=== PATIENT | female | born 1935 | race Caucasian/White ===

== ENCOUNTER 2019-03-26 10:15 | Inpatient (IN) | payer MEDICARE, BC ==
[2019-03-26] MEDS ORDERED: Aspirin 81 MG Tab.Chew PO ONE (10:28)
[2019-03-26] MEDS ORDERED: Diltiazem 25 MG/5 ML SDV IVPUSH ONE (10:31)
[2019-03-26] MEDS: Sodium Chloride 0.9% 1,000 ML IV SCH ×3 (10:39→14:35)
--- NOTE | 2019-03-26 10:54 | EDM.PDOC ---
ED HPI GENERAL MEDICAL PROBLEM - General Chief Complaint: Syncope Stated Complaint: heart attack Time Seen by Provider: 03/26/19 10:51 Source of Information: Reports: Patient, Family, Other (pt lives at the [facility]. ) History Limitations: Reports: No Limitations - History of Present Illness INITIAL COMMENTS - FREE TEXT/NARRATIVE: pt has a history of dementia and is living at the [facility]. She had several episodes of syncope this am. She had an episode where she may have arrested briefly. She was found to be in atrial fib which is new for her. She did not complain of chest pain. Onset: Today, Sudden Duration: Hour(s): Location: Reports: Chest Associated Symptoms: Reports: Shortness of Breath, Other (rapid heart beat. ) - Related Data Allergies Allergy/AdvReac Type Severity Reaction Status Date / Time Penicillins Allergy Cannot Verified 03/26/19 11:17 Remember Home Meds: Home Meds Benazepril [Lotensin] 20 mg PO DAILY 03/26/19 [History] Divalproex Sodium 125 mg PO BID 03/26/19 [History] Donepezil HCl 10 mg PO DAILY 03/26/19 [History] PARoxetine HCl [Paroxetine HCl] 40 mg PO DAILY 03/26/19 [History] Potassium Chloride 20 meq PO DAILY 03/26/19 [History] QUEtiapine Fumarate [Quetiapine Fumarate] 75 mg PO DAILY 03/26/19 [History] hydroCHLOROthiazide [Hydrochlorothiazide] 25 mg PO DAILY 03/26/19 [History] ED ROS GENERAL - Review of Systems Review Of Systems: See Below Constitutional: Reports: Other (pt had a 99 degree temp this am. ) HEENT: Reports: No Symptoms Respiratory: Reports: No Symptoms Cardiovascular: Reports: Palpitations, Other (pt was found to have a irregularly irregula heart beat. ) Endocrine: Reports: No Symptoms GI/Abdominal: Reports: No Symptoms : Reports: No Symptoms Musculoskeletal: Reports: No Symptoms Skin: Reports: No Symptoms ED EXAM, NEURO - Physical Exam Exam: See Below Text/Narrative:: pt arrived with a history of syncope at the [facility] home she did not complain of chest pain. Her temp was low grade this am. She has no cardiac hiatory. Her heart rate was rapid and was found to be in atrial fib. Exam Limited By: No Limitations General Appearance: Alert, Anxious, Mild Distress, Other (pupils equal and reactive. ) Ears: Normal TMs Nose: Normal Inspection Throat/Mouth: Normal Inspection Head Exam: Atraumatic Neck: Normal Inspection Respiratory/Chest: No Respiratory Distress Cardiovascular: Irregularly Irregular, Other (rate in the 140 range. ) GI/Abdominal: Soft, Non-Tender (Female) Exam: Deferred Rectal (Female) Exam: Deferred Neurological: Alert, Other (pt has a history of being disoriented. ) Back Exam: Normal Inspection Extremities: Other (no edema. She does have a history of thick brawny ankles. ) Psychiatric: Normal Affect Course - Vital Signs Last Recorded V/S: Last Vital Signs Temp 36.7 C 03/26/19 11:29 Pulse 148 H 03/26/19 11:29 Resp 16 03/26/19 11:29 BP 93/53 L 03/26/19 11:29 Pulse Ox 90 L 03/26/19 11:29 - Orders/Labs/Meds Orders: Active Orders 24 hr Category Date Time Status EKG Documentation Completion [RC] ASDIRECTED Care 03/26/19 10:20 Active Delgado Catheter Insertion [Insert Urinary Catheter] [OM. Care 03/26/19 11:15 Ordered PC] Q24H Urinary Catheter Assessment [RC] ASDIRECTED Care 03/26/19 11:02 Active CULTURE BLOOD [BC] Urgent Lab 03/26/19 11:53 Ordered CULTURE BLOOD [BC] Urgent Lab 03/26/19 11:53 Ordered CULTURE URINE [RM] Stat Lab 03/26/19 11:50 Ordered Sodium Chloride 0.9% [Normal Saline] 1,000 ml Med 03/26/19 10:30 Active IV ASDIRECTED Blood Culture x2 Reflex Set [OM.PC] Urgent Oth 03/26/19 11:53 Ordered EKG 12 Lead [EK] Routine Ther 03/26/19 10:20 Ordered Medication Orders Sodium Chloride (Normal Saline) 1,000 mls @ 250 mls/hr IV ASDIRECTED ZACHERY Last Admin: 03/26/19 10:39 Dose: 250 mls/hr Labs: Laboratory Tests 03/26/19 03/26/19 03/26/19 Range/Units 10:30 10:30 10:30 WBC 10.6 (4.5-11.0) K/uL RBC 4.71 (3.30-5.50) M/uL Hgb 14.4 (12.0-15.0) g/dL Hct 44.9 (36.0-48.0) % MCV 95 (80-98) fL MCH 31 (27-31) pg MCHC 32 (32-36) % Plt Count 287 (150-400) K/uL Neut % (Auto) 58 (36-66) % Lymph % (Auto) 20 L (24-44) % [place] % (Auto) 20 H (2-6) % Eos % (Auto) 2 (2-4) % Baso % (Auto) 0 (0-1) % Sodium 136 L (140-148) mmol/L Potassium 3.9 (3.6-5.2) mmol/L Chloride 99 L (100-108) mmol/L Carbon Dioxide 27 (21-32) mmol/L Anion Gap 13.9 (5.0-14.0) mmol/L BUN 17 (7-18) mg/dL Creatinine 1.2 H (0.6-1.0) mg/dL Est Cr Clr Drug Dosing 31.40 mL/min Estimated GFR (MDRD) 43 L (>60) Glucose 126 H (74-106) mg/dL Lactic Acid (0.4-2.0) mmol/L Calcium 8.8 (8.5-10.1) mg/dL Total Bilirubin 0.8 (0.2-1.0) mg/dL AST 28 (15-37) U/L ALT 17 (12-78) U/L Alkaline Phosphatase 95 (46-116) U/L Troponin I < 0.017 (0.000-0.056) ng/mL NT-Pro-B Natriuret Pep (5-450) pg/mL Total Protein 6.5 (6.4-8.2) g/dL Albumin 3.1 L (3.4-5.0) g/dL Globulin 3.4 (2.3-3.5) g/dL Albumin/Globulin Ratio 0.9 L (1.2-2.2) Urine Color (YELLOW) Urine Appearance (CLEAR) Urine pH (5.0-8.0) Ur Specific [place] (1.008-1.030) Urine Protein (NEGATIVE) mg/dL Urine Glucose (UA) (NEGATIVE) mg/dL Urine Ketones (NEGATIVE) mg/dL Urine Occult Blood (NEGATIVE) Urine Nitrite (NEGATIVE) Urine Bilirubin (NEGATIVE) Urine Urobilinogen (0.2-1.0) EU/dL Ur Leukocyte Esterase (NEGATIVE) Urine RBC (0-5) Urine WBC (0-5) Ur Epithelial Cells Amorphous Sediment Urine Bacteria Urine Mucus 03/26/19 03/26/19 03/26/19 Range/Units 10:30 10:30 11:21 WBC (4.5-11.0) K/uL RBC (3.30-5.50) M/uL Hgb (12.0-15.0) g/dL Hct (36.0-48.0) % MCV (80-98) fL MCH (27-31) pg MCHC (32-36) % Plt Count (150-400) K/uL Neut % (Auto) (36-66) % Lymph % (Auto) (24-44) % [place] % (Auto) (2-6) % Eos % (Auto) (2-4) % Baso % (Auto) (0-1) % Sodium (140-148) mmol/L Potassium (3.6-5.2) mmol/L Chloride (100-108) mmol/L Carbon Dioxide (21-32) mmol/L Anion Gap (5.0-14.0) mmol/L BUN (7-18) mg/dL Creatinine (0.6-1.0) mg/dL Est Cr Clr Drug Dosing mL/min Estimated GFR (MDRD) (>60) Glucose (74-106) mg/dL Lactic Acid 2.7 H (0.4-2.0) mmol/L Calcium (8.5-10.1) mg/dL Total Bilirubin (0.2-1.0) mg/dL AST (15-37) U/L ALT (12-78) U/L Alkaline Phosphatase (46-116) U/L Troponin I (0.000-0.056) ng/mL NT-Pro-B Natriuret Pep 2406 H (5-450) pg/mL Total Protein (6.4-8.2) g/dL Albumin (3.4-5.0) g/dL Globulin (2.3-3.5) g/dL Albumin/Globulin Ratio (1.2-2.2) Urine Color Yellow (YELLOW) Urine Appearance Slightly cloudy A (CLEAR) Urine pH 7.0 (5.0-8.0) Ur Specific [place] 1.020 (1.008-1.030) Urine Protein 100 H (NEGATIVE) mg/dL Urine Glucose (UA) Negative (NEGATIVE) mg/dL Urine Ketones Negative (NEGATIVE) mg/dL Urine Occult Blood Negative (NEGATIVE) Urine Nitrite Negative (NEGATIVE) Urine Bilirubin Negative (NEGATIVE) Urine Urobilinogen 1.0 (0.2-1.0) EU/dL Ur Leukocyte Esterase Negative (NEGATIVE) Urine RBC 0-5 (0-5) Urine WBC 0-5 (0-5) Ur Epithelial Cells Rare Amorphous Sediment Rare Urine Bacteria Rare Urine Mucus Many Meds: Medications Generic Name Dose Route Start Last Admin Trade Name Freq PRN Reason Stop Dose Admin Sodium Chloride 1,000 mls @ 250 mls/hr 03/26/19 10:30 03/26/19 10:39 Normal Saline IV 250 mls/hr ASDIRECTED ZACHERY Administration Discontinued Medications Generic Name Dose Route Start Last Admin Trade Name Freq PRN Reason Stop Dose Admin Aspirin 324 mg 03/26/19 10:28 03/26/19 10:39 Aspirin PO 03/26/19 10:29 324 mg ONETIME ONE Administration Diltiazem HCl 10 mg 03/26/19 10:31 03/26/19 10:35 Diltiazem IVPUSH 03/26/19 10:32 Not Given ONETIME ONE - Re-Assessments/Exams Free Text/Narrative Re-Assessment/Exam: 03/26/19 11:13 pt had a chest xray which did not reveal a infiltrate. She has a normal trop. Her ekg shows atrial fib--uncontrolled. Her wbc is not elevated. 03/26/19 11:54 pt has mild elevation of lactic acid. Her chest xray does not reveal a infiltracte. Pt remains hypotensive. She has had 1 liter of fluid. She has a Ua that does not look infected. Departure - Departure Time of Disposition: 12:02 Disposition: Admitted As Inpatient 65 Condition: Fair Clinical Impression: Hypotension, Atrial fibrillation with rapid ventricular response, Dehydration - Discharge Information Referrals: PCP,None [Primary Care Provider] - Forms: ED Department Discharge - My Orders Last 24 Hours: My Active Orders 03/26/19 10:20 EKG Documentation Completion [RC] ASDIRECTED EKG 12 Lead [EK] Routine 03/26/19 10:30 Sodium Chloride 0.9% [Normal Saline] 1,000 ml IV ASDIRECTED 03/26/19 11:02 Urinary Catheter Assessment [RC] ASDIRECTED 03/26/19 11:15 Delgado Catheter Insertion [Insert Urinary Catheter] [OM.PC] Q24H 03/26/19 11:50 CULTURE URINE [RM] Stat 03/26/19 11:53 CULTURE BLOOD [BC] Urgent CULTURE BLOOD [BC] Urgent Blood Culture x2 Reflex Set [OM.PC] Urgent - Assessment/Plan Last 24 Hours: My Active Orders 03/26/19 10:20 EKG Documentation Completion [RC] ASDIRECTED EKG 12 Lead [EK] Routine 03/26/19 10:30 Sodium Chloride 0.9% [Normal Saline] 1,000 ml IV ASDIRECTED 03/26/19 11:02 Urinary Catheter Assessment [RC] ASDIRECTED 03/26/19 11:15 Delgado Catheter Insertion [Insert Urinary Catheter] [OM.PC] Q24H 03/26/19 11:50 CULTURE URINE [RM] Stat 03/26/19 11:53 CULTURE BLOOD [BC] Urgent CULTURE BLOOD [BC] Urgent Blood Culture x2 Reflex Set [OM.PC] Urgent
--- NOTE | 2019-03-26 11:51 | CRLCR ---
INDICATION: Short of breath. TECHNIQUE: Chest 1 view COMPARISON: None. FINDINGS: Hyperinflation with flattening of the hemidiaphragms bilaterally. Possible nodular density in the right midlung. Linear atelectasis or scarring left mid lung. No focal consolidation, pleural effusion, or pneumothorax. Cardiomegaly. Normal pulmonary vascularity. Prominent central pulmonary arteries. Calcified tortuous aorta. IMPRESSION: 1. No acute cardiopulmonary findings. 2. Possible nodular density in the right midlung. Consider further evaluation with chest CT. 3. Pulmonary hyperinflation. 4. Cardiomegaly. Dictated by Guera Goldstein MD @ Mar 26 2019 11:47AM Signed by Dr. Guera Goldstein @ Mar 26 2019 11:49AM
[2019-03-26] MEDS ORDERED: Sodium Chloride 0.9% 1,000 ML IV SCH (12:15)
--- NOTE | 2019-03-26 13:02 | PCM.HP.2 ---
H&P History of Present Illness - General Date of Service: 03/26/19 Admit Problem/Dx: Admission Diagnosis/Problem Admission Diagnosis/Problem Atrial flutter with rapid ventricular response Source of Information: Patient, Family, Provider History Limitations: Reports: Other (dementia ) - History of Present Illness Initial Comments - Free Text/Narative: CC: syncope HPI: Chary presents from assisted living after an episode of syncope. She is unable to provide reliable history because of her dementia. History is gathered from her daughter and son-in-law. They report that she seemed a little shaky and a little weak yesterday but was otherwise normal. This morning while her daughter and son-in-law were at her apartment checking on her after she fell asleep at breakfast she had a syncopal episode while on the toilet. She was unresponsive for a short while and her son could not palpate a pulse but she did not have CPR. She was brought to the emergency room for further evaluation and was noted to be in atrial fibrillation/flutter with a heart rate in the 150s. She was hypotensive with systolic blood pressures in the 70s. There was concern for sepsis and she was given IV fluids and cultures were obtained in addition to routine laboratory studies. Her heart rate has slowed some with IV fluids and she is in atrial flutter with a persistent elevation of the heart rate. There is no evidence for an infectious source at this time though her lactic acid level is mildly elevated. Blood pressure is improving with IV fluids. Patient says that she feels fine. She does not recall recent difficulties with chest pain, shortness of breath, cough, fevers or abdominal pain. She has not noticed a change in bowel or bladder habits. She will be admitted for management of atrial flutter. - Related Data Allergies/Adverse Reactions: Allergies Allergy/AdvReac Type Severity Reaction Status Date / Time Penicillins Allergy Cannot Verified 03/26/19 11:17 Remember Home Medications: Home Meds Benazepril [Lotensin] 20 mg PO DAILY 03/26/19 [History] Divalproex Sodium 125 mg PO BIDAC 03/26/19 [History] Donepezil HCl 10 mg PO DAILY 03/26/19 [History] PARoxetine HCl [Paroxetine HCl] 40 mg PO DAILY 03/26/19 [History] Potassium Chloride 20 meq PO DAILY 03/26/19 [History] QUEtiapine Fumarate [Quetiapine Fumarate] 75 mg PO DAILY 03/26/19 [History] hydroCHLOROthiazide [Hydrochlorothiazide] 25 mg PO DAILY 03/26/19 [History] Past Medical History HEENT History: Reports: Impaired Vision Cardiovascular History: Reports: Arrhythmia, Hypertension, Other (See Below) Other Cardiovascular History: svt [employer] History: Reports: Musculoskeletal History: Reports: Osteoporosis Neurological History: Reports: Other (See Below) Other Neuro History: dementia, trigeminal neuralgia Psychiatric History: Reports: Anxiety Dermatologic History: Reports: Seborrheic Dermatitis Social & Family History - Family History Cardiac: Denies: CAD - Tobacco Use Smoking Status *Q: Never Smoker - Caffeine Use Caffeine Use: Reports: None - Alcohol Use Alcohol Use History: No - Recreational Drug Use Recreational Drug Use: No H&P Review of Systems - Review of Systems: Review Of Systems: Unable To Obtain (advanced dementia) Exam - Exam Exam: See Below - Vital Signs Vital Signs: Last Vital Signs Temp 36.7 C 03/26/19 11:29 Pulse 118 H 03/26/19 12:43 Resp 19 03/26/19 12:43 BP 88/53 L 03/26/19 12:43 Pulse Ox 96 03/26/19 12:43 Weight: 68.039 kg - Exam Quality Assessment: No: Supplemental Oxygen General: Alert, Cooperative. No: Oriented, Mild Distress HEENT: Conjunctiva Clear. No: Mucosa Moist & [place] (dry), Scleral Icterus Neck: Supple, Trachea Midline. No: Lymphadenopathy Lungs: Clear to Auscultation, Normal Respiratory Effort Cardiovascular: Irregular Rhythm, Tachycardia. No: Systolic Murmur GI/Abdominal Exam: Normal Bowel Sounds, Soft, Non-Tender, No Distention, No Mass Extremities: No Pedal Edema. No: Joint Swelling, Increased Warmth Peripheral Pulses: 2+: Dorsalis Pedis (L), Dorsalis Pedis (R) Skin: Warm, Dry Neuro Extensive - Mental Status: Alert, Nl Response to Commands. No: Oriented x3 Neuro Extensive - Motor, Sensory, Reflexes: No: Dysarthria, Abnormal Motor, Tremor Psychiatric: Alert, Normal Affect. No: Agitated - Patient Data Lab Results Last 24 hrs: Laboratory Results - last 24 hr 03/26/19 03/26/19 03/26/19 Range/Units 10:30 10:30 10:30 WBC 10.6 (4.5-11.0) K/uL RBC 4.71 (3.30-5.50) M/uL Hgb 14.4 (12.0-15.0) g/dL Hct 44.9 (36.0-48.0) % MCV 95 (80-98) fL MCH 31 (27-31) pg MCHC 32 (32-36) % Plt Count 287 (150-400) K/uL Neut % (Auto) 58 (36-66) % Lymph % (Auto) 20 L (24-44) % [place] % (Auto) 20 H (2-6) % Eos % (Auto) 2 (2-4) % Baso % (Auto) 0 (0-1) % Sodium 136 L (140-148) mmol/L Potassium 3.9 (3.6-5.2) mmol/L Chloride 99 L (100-108) mmol/L Carbon Dioxide 27 (21-32) mmol/L Anion Gap 13.9 (5.0-14.0) mmol/L BUN 17 (7-18) mg/dL Creatinine 1.2 H (0.6-1.0) mg/dL Est Cr Clr Drug Dosing 31.40 mL/min Estimated GFR (MDRD) 43 L (>60) Glucose 126 H (74-106) mg/dL Lactic Acid (0.4-2.0) mmol/L Calcium 8.8 (8.5-10.1) mg/dL Total Bilirubin 0.8 (0.2-1.0) mg/dL AST 28 (15-37) U/L ALT 17 (12-78) U/L Alkaline Phosphatase 95 (46-116) U/L Troponin I < 0.017 (0.000-0.056) ng/mL NT-Pro-B Natriuret Pep (5-450) pg/mL Total Protein 6.5 (6.4-8.2) g/dL Albumin 3.1 L (3.4-5.0) g/dL Globulin 3.4 (2.3-3.5) g/dL Albumin/Globulin Ratio 0.9 L (1.2-2.2) Urine Color (YELLOW) Urine Appearance (CLEAR) Urine pH (5.0-8.0) Ur Specific [place] (1.008-1.030) Urine Protein (NEGATIVE) mg/dL Urine Glucose (UA) (NEGATIVE) mg/dL Urine Ketones (NEGATIVE) mg/dL Urine Occult Blood (NEGATIVE) Urine Nitrite (NEGATIVE) Urine Bilirubin (NEGATIVE) Urine Urobilinogen (0.2-1.0) EU/dL Ur Leukocyte Esterase (NEGATIVE) Urine RBC (0-5) Urine WBC (0-5) Ur Epithelial Cells Amorphous Sediment Urine Bacteria Urine Mucus 03/26/19 03/26/19 03/26/19 Range/Units 10:30 10:30 11:21 WBC (4.5-11.0) K/uL RBC (3.30-5.50) M/uL Hgb (12.0-15.0) g/dL Hct (36.0-48.0) % MCV (80-98) fL MCH (27-31) pg MCHC (32-36) % Plt Count (150-400) K/uL Neut % (Auto) (36-66) % Lymph % (Auto) (24-44) % [place] % (Auto) (2-6) % Eos % (Auto) (2-4) % Baso % (Auto) (0-1) % Sodium (140-148) mmol/L Potassium (3.6-5.2) mmol/L Chloride (100-108) mmol/L Carbon Dioxide (21-32) mmol/L Anion Gap (5.0-14.0) mmol/L BUN (7-18) mg/dL Creatinine (0.6-1.0) mg/dL Est Cr Clr Drug Dosing mL/min Estimated GFR (MDRD) (>60) Glucose (74-106) mg/dL Lactic Acid 2.7 H (0.4-2.0) mmol/L Calcium (8.5-10.1) mg/dL Total Bilirubin (0.2-1.0) mg/dL AST (15-37) U/L ALT (12-78) U/L Alkaline Phosphatase (46-116) U/L Troponin I (0.000-0.056) ng/mL NT-Pro-B Natriuret Pep 2406 H (5-450) pg/mL Total Protein (6.4-8.2) g/dL Albumin (3.4-5.0) g/dL Globulin (2.3-3.5) g/dL Albumin/Globulin Ratio (1.2-2.2) Urine Color Yellow (YELLOW) Urine Appearance Slightly cloudy A (CLEAR) Urine pH 7.0 (5.0-8.0) Ur Specific [place] 1.020 (1.008-1.030) Urine Protein 100 H (NEGATIVE) mg/dL Urine Glucose (UA) Negative (NEGATIVE) mg/dL Urine Ketones Negative (NEGATIVE) mg/dL Urine Occult Blood Negative (NEGATIVE) Urine Nitrite Negative (NEGATIVE) Urine Bilirubin Negative (NEGATIVE) Urine Urobilinogen 1.0 (0.2-1.0) EU/dL Ur Leukocyte Esterase Negative (NEGATIVE) Urine RBC 0-5 (0-5) Urine WBC 0-5 (0-5) Ur Epithelial Cells Rare Amorphous Sediment Rare Urine Bacteria Rare Urine Mucus Many Result Diagrams: 03/26/19 10:30 03/26/19 10:30 Imaging Impressions Last 24 hrs: CXR - images personally reviewed - lungs clear with no mass, infiltrate or effusion. Heart size normal. Possible nodular density noted in right midlung. EKG INTERPRETATION EKG Date: 03/26/19 Rhythm: A-Flutter Rate (Beats/Min): 133 [place]: Normal P-Wave: Variable QRS: Normal ST-T: Normal QT: Normal Comparison: NA - No Prior EKG *Q Meaningful Use (ADM) - VTE Risk Assess *Q Each Risk Factor Represents 1 Point: None Total Score 1 Point Risk Factors: 0 Each Risk Factor Represents 2 Points: None Total Score 2 Point Risk Factors: 0 Each Risk Factor Represents 3 Points: Age 75 Years or Greater Total Score 3 Point Risk Factors: 3 Each Risk Factor Represents 5 Points: None Total Score 5 Point Risk Factors: 0 Venous Thromboembolism Risk Factor Score *Q: 3 - Problem List (1) Atrial flutter with rapid ventricular response SNOMED Code(s): 0658134, 6895466 ICD Code: I48.92 - UNSPECIFIED ATRIAL FLUTTER Status: Acute Current Visit : Yes (2) Alzheimer's dementia without behavioral disturbance SNOMED Code(s): 56745231 ICD Code: G30.9 - ALZHEIMER'S DISEASE, UNSPECIFIED; F02.80 - DEMENTIA IN OTH DISEASES CLASSD ELSWHR W/O BEHAVRL DISTURB Status: Chronic Current Visit: Yes Qualifiers: Alzheimer's disease onset: late-onset Qualified Code(s): G30.1 - Alzheimer' s disease with late onset; F02.80 - Dementia in other diseases classified elsewhere without behavioral disturbance (3) Essential hypertension SNOMED Code(s): 71362042 ICD Code: I10 - ESSENTIAL (PRIMARY) HYPERTENSION Status: Chronic Current Visit: Yes (4) Encounter for palliative care SNOMED Code(s): 736805705 ICD Code: Z51.5 - ENCOUNTER FOR PALLIATIVE CARE Status: Acute Current Visit: Yes Problem List Initiated/Reviewed/Updated: Yes Orders Last 24hrs: Active Orders 24 hr Category Date Time Status Patient Status Manage Transfer [TRANSFER] Routine ADT 03/26/19 12:51 Ordered EKG Documentation Completion [RC] ASDIRECTED Care 03/26/19 10:20 Active Delgado Catheter Insertion [Insert Urinary Catheter] [OM. Care 03/26/19 11:15 Ordered PC] Q24H Urinary Catheter Assessment [RC] ASDIRECTED Care 03/26/19 11:02 Active CULTURE BLOOD [BC] Urgent Lab 03/26/19 11:55 Received CULTURE BLOOD [BC] Urgent Lab 03/26/19 12:05 Received CULTURE URINE [RM] Stat Lab 03/26/19 11:55 Received Sodium Chloride 0.9% [Normal Saline] 1,000 ml Med 03/26/19 10:30 Active IV ASDIRECTED Sodium Chloride 0.9% [Normal Saline] 1,000 ml Med 03/26/19 12:15 Active IV ASDIRECTED Blood Culture x2 Reflex Set [OM.PC] Urgent Oth 03/26/19 11:53 Ordered Resuscitation Status Routine Resus Stat 03/26/19 12:52 Ordered EKG 12 Lead [EK] Routine Ther 03/26/19 10:20 Ordered Medication Orders Sodium Chloride (Normal Saline) 1,000 mls @ 999 mls/hr IV ASDIRECTED ZACHERY Last Admin: 03/26/19 11:59 Dose: 999 mls/hr Infusion: 03/26/19 11:55 Dose: 999 mls/hr Infusion: 03/26/19 11:00 Dose: 999 mls/hr Admin: 03/26/19 10:39 Dose: 250 mls/hr Sodium Chloride (Normal Saline) 1,000 mls @ 999 mls/hr IV ASDIRECTED ZACHERY Assessment/Plan Comment:: ASSESSMENT AND PLAN - Atrial flutter with rapid ventricular response - no history of heart disease but she does have hypertension. No obvious source of infection. Troponin level is normal. No impressive cardiac murmurs noted on exam. No obvious cause for the tachycardic rhythm at this time. Heart rate has slowed a little with IV fluids and blood pressure has improved. -Diltiazem infusion without bolus -Cardiac monitoring -Echocardiogram when available -Consider digoxin if additional rate control as necessary -Consider beta daniel if blood pressure allows Syncope - Probably a combination of her tachycardic rhythm and hypovolemia. She has perked up nicely with some IV fluids. No evidence for infection at this time. 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 -Continue home medications -Melatonin at bedtime Essential hypertension - Blood pressure on the low side as discussed above. -Hold home medications Stage III chronic kidney disease Encounter for palliative care - family does not desire transfer to tertiary care center for aggressive intervention or workup if her condition declines. They desire limited cares and requests that no CPR or mechanical ventilation be performed. Maintenance issues - - DVT prophylaxis - enoxaparin - GI prophylaxis - not indicated - Nutrition - regular - Delgado catheter - placed in the emergency room for strict intake and output monitoring and a critical patient CODE STATUS - DNR/DNI Admission justification - This patient will be admitted for inpatient services and is medically appropriate meeting medical necessity for inpatient admission as outlined in my documentation. I reasonably expect the patient will require inpatient services that span a period time over 2 midnights. I reasonably expect this patient to be discharged or transferred within 96 hours [facility]. Disposition - I would anticipate discharge back to her assisted living after the hospital stay Primary care physician - Pilar Gomez M.D. - Mortality Measure Prognosis:: Good
[2019-03-26] MEDS ORDERED: Albuterol 0.083% 2.5 MG/3 ML Neb Soln NEB PRN (13:57)
[2019-03-26] MEDS ORDERED: Ondansetron 4 MG/2 ML SDV IV PRN (13:57)
[2019-03-26] MEDS ORDERED: Magnesium Hydroxide 400 MG/5 ML Susp 30 ML Cup PO PRN (13:57)
[2019-03-26] MEDS ORDERED: Ondansetron 4 MG Tab.DIS PO PRN (13:57)
[2019-03-26] MEDS ORDERED: Diltiazem 125 MG in Sodium Chloride 0.9% 100 ML IV SCH (14:45)
[2019-03-26] MEDS: Divalproex Sodium Delayed-Release 125 MG Cap.Sprink PO SCH (16:29)
[2019-03-26] MEDS: Melatonin 3 MG Tab PO SCH (20:24)
[2019-03-27] MEDS ORDERED: Furosemide 20 MG/2 ML VIAL IVPUSH ONE (09:20)
--- NOTE | 2019-03-27 09:21 | PCM.PN ---
- General Info Date of Service: 03/27/19 Subjective Update: There were no acute events overnight. The patient is not able to provide reliable history because of her dementia. She did convert to sinus rhythm overnight. Blood pressures have been stable. She has not had any fevers. She tells me that she feels fine this morning and does not feel short of breath. Appetite has been good. Cultures are all negative so far. Echocardiogram this morning showed a normal ejection fraction and no significant valvular abnormalities. She does have a large air cardio effusion. She is requiring supplemental oxygen this morning. Functional Status: Reports: Pain Controlled, Tolerating Diet - Review of Systems Neurological: Reports: Confusion - Patient Data Vitals - Most Recent: Last Vital Signs Temp 36.9 C 03/27/19 08:00 Pulse 95 03/27/19 08:00 Resp 21 H 03/27/19 08:00 BP 118/67 03/27/19 08:00 Pulse Ox 90 L 03/27/19 08:00 Weight - Most Recent: 78.925 kg I&O - Last 24 Hours: Intake & Output 03/26/19 03/27/19 03/27/19 22:59 06:59 14:59 Intake Total 104 370 Output Total 350 400 Balance -246 -30 Lab Results Last 24 Hours: Laboratory Results - last 24 hr 03/26/19 03/26/19 03/26/19 Range/Units 10:30 10:30 10:30 WBC 10.6 (4.5-11.0) K/uL RBC 4.71 (3.30-5.50) M/uL Hgb 14.4 (12.0-15.0) g/dL Hct 44.9 (36.0-48.0) % MCV 95 (80-98) fL MCH 31 (27-31) pg MCHC 32 (32-36) % Plt Count 287 (150-400) K/uL Neut % (Auto) 58 (36-66) % Lymph % (Auto) 20 L (24-44) % Mchenry % (Auto) 20 H (2-6) % Eos % (Auto) 2 (2-4) % Baso % (Auto) 0 (0-1) % Sodium 136 L (140-148) mmol/L Potassium 3.9 (3.6-5.2) mmol/L Chloride 99 L (100-108) mmol/L Carbon Dioxide 27 (21-32) mmol/L Anion Gap 13.9 (5.0-14.0) mmol/L BUN 17 (7-18) mg/dL Creatinine 1.2 H (0.6-1.0) mg/dL Est Cr Clr Drug Dosing 31.40 mL/min Estimated GFR (MDRD) 43 L (>60) Glucose 126 H (74-106) mg/dL Lactic Acid (0.4-2.0) mmol/L Calcium 8.8 (8.5-10.1) mg/dL Magnesium (1.8-2.4) mg/dL Total Bilirubin 0.8 (0.2-1.0) mg/dL AST 28 (15-37) U/L ALT 17 (12-78) U/L Alkaline Phosphatase 95 (46-116) U/L Troponin I < 0.017 (0.000-0.056) ng/mL NT-Pro-B Natriuret Pep (5-450) pg/mL Total Protein 6.5 (6.4-8.2) g/dL Albumin 3.1 L (3.4-5.0) g/dL Globulin 3.4 (2.3-3.5) g/dL Albumin/Globulin Ratio 0.9 L (1.2-2.2) Urine Color (YELLOW) Urine Appearance (CLEAR) Urine pH (5.0-8.0) Ur Specific [place] (1.008-1.030) Urine Protein (NEGATIVE) mg/dL Urine Glucose (UA) (NEGATIVE) mg/dL Urine Ketones (NEGATIVE) mg/dL Urine Occult Blood (NEGATIVE) Urine Nitrite (NEGATIVE) Urine Bilirubin (NEGATIVE) Urine Urobilinogen (0.2-1.0) EU/dL Ur Leukocyte Esterase (NEGATIVE) Urine RBC (0-5) Urine WBC (0-5) Ur Epithelial Cells Amorphous Sediment Urine Bacteria Urine Mucus 03/26/19 03/26/19 03/26/19 Range/Units 10:30 10:30 11:21 WBC (4.5-11.0) K/uL RBC (3.30-5.50) M/uL Hgb (12.0-15.0) g/dL Hct (36.0-48.0) % MCV (80-98) fL MCH (27-31) pg MCHC (32-36) % Plt Count (150-400) K/uL Neut % (Auto) (36-66) % Lymph % (Auto) (24-44) % Mchenry % (Auto) (2-6) % Eos % (Auto) (2-4) % Baso % (Auto) (0-1) % Sodium (140-148) mmol/L Potassium (3.6-5.2) mmol/L Chloride (100-108) mmol/L Carbon Dioxide (21-32) mmol/L Anion Gap (5.0-14.0) mmol/L BUN (7-18) mg/dL Creatinine (0.6-1.0) mg/dL Est Cr Clr Drug Dosing mL/min Estimated GFR (MDRD) (>60) Glucose (74-106) mg/dL Lactic Acid 2.7 H (0.4-2.0) mmol/L Calcium (8.5-10.1) mg/dL Magnesium (1.8-2.4) mg/dL Total Bilirubin (0.2-1.0) mg/dL AST (15-37) U/L ALT (12-78) U/L Alkaline Phosphatase (46-116) U/L Troponin I (0.000-0.056) ng/mL NT-Pro-B Natriuret Pep 2406 H (5-450) pg/mL Total Protein (6.4-8.2) g/dL Albumin (3.4-5.0) g/dL Globulin (2.3-3.5) g/dL Albumin/Globulin Ratio (1.2-2.2) Urine Color Yellow (YELLOW) Urine Appearance Slightly cloudy A (CLEAR) Urine pH 7.0 (5.0-8.0) Ur Specific [place] 1.020 (1.008-1.030) Urine Protein 100 H (NEGATIVE) mg/dL Urine Glucose (UA) Negative (NEGATIVE) mg/dL Urine Ketones Negative (NEGATIVE) mg/dL Urine Occult Blood Negative (NEGATIVE) Urine Nitrite Negative (NEGATIVE) Urine Bilirubin Negative (NEGATIVE) Urine Urobilinogen 1.0 (0.2-1.0) EU/dL Ur Leukocyte Esterase Negative (NEGATIVE) Urine RBC 0-5 (0-5) Urine WBC 0-5 (0-5) Ur Epithelial Cells Rare Amorphous Sediment Rare Urine Bacteria Rare Urine Mucus Many 03/26/19 03/26/19 03/26/19 Range/Units 13:57 15:50 15:50 WBC (4.5-11.0) K/uL RBC (3.30-5.50) M/uL Hgb (12.0-15.0) g/dL Hct (36.0-48.0) % MCV (80-98) fL MCH (27-31) pg MCHC (32-36) % Plt Count (150-400) K/uL Neut % (Auto) (36-66) % Lymph % (Auto) (24-44) % Mchenry % (Auto) (2-6) % Eos % (Auto) (2-4) % Baso % (Auto) (0-1) % Sodium (140-148) mmol/L Potassium (3.6-5.2) mmol/L Chloride (100-108) mmol/L Carbon Dioxide (21-32) mmol/L Anion Gap (5.0-14.0) mmol/L BUN (7-18) mg/dL Creatinine (0.6-1.0) mg/dL Est Cr Clr Drug Dosing mL/min Estimated GFR (MDRD) (>60) Glucose (74-106) mg/dL Lactic Acid 1.3 (0.4-2.0) mmol/L Calcium (8.5-10.1) mg/dL Magnesium 2.0 (1.8-2.4) mg/dL Total Bilirubin (0.2-1.0) mg/dL AST (15-37) U/L ALT (12-78) U/L Alkaline Phosphatase (46-116) U/L Troponin I 0.032 (0.000-0.056) ng/mL NT-Pro-B Natriuret Pep (5-450) pg/mL Total Protein (6.4-8.2) g/dL Albumin (3.4-5.0) g/dL Globulin (2.3-3.5) g/dL Albumin/Globulin Ratio (1.2-2.2) Urine Color (YELLOW) Urine Appearance (CLEAR) Urine pH (5.0-8.0) Ur Specific [place] (1.008-1.030) Urine Protein (NEGATIVE) mg/dL Urine Glucose (UA) (NEGATIVE) mg/dL Urine Ketones (NEGATIVE) mg/dL Urine Occult Blood (NEGATIVE) Urine Nitrite (NEGATIVE) Urine Bilirubin (NEGATIVE) Urine Urobilinogen (0.2-1.0) EU/dL Ur Leukocyte Esterase (NEGATIVE) Urine RBC (0-5) Urine WBC (0-5) Ur Epithelial Cells Amorphous Sediment Urine Bacteria Urine Mucus 03/27/19 03/27/19 Range/Units 05:10 05:11 WBC 8.4 (4.5-11.0) K/uL RBC 4.19 (3.30-5.50) M/uL Hgb 12.7 (12.0-15.0) g/dL Hct 40.4 (36.0-48.0) % MCV 96 (80-98) fL MCH 30 (27-31) pg MCHC 31 L (32-36) % Plt Count 232 (150-400) K/uL Neut % (Auto) (36-66) % Lymph % (Auto) (24-44) % Mchenry % (Auto) (2-6) % Eos % (Auto) (2-4) % Baso % (Auto) (0-1) % Sodium 138 L (140-148) mmol/L Potassium 3.7 (3.6-5.2) mmol/L Chloride 104 (100-108) mmol/L Carbon Dioxide 28 (21-32) mmol/L Anion Gap 9.7 (5.0-14.0) mmol/L BUN 17 (7-18) mg/dL Creatinine 0.7 (0.6-1.0) mg/dL Est Cr Clr Drug Dosing 53.75 mL/min Estimated GFR (MDRD) > 60 (>60) Glucose 122 H (74-106) mg/dL Lactic Acid (0.4-2.0) mmol/L Calcium 8.0 L (8.5-10.1) mg/dL Magnesium (1.8-2.4) mg/dL Total Bilirubin (0.2-1.0) mg/dL AST (15-37) U/L ALT (12-78) U/L Alkaline Phosphatase (46-116) U/L Troponin I (0.000-0.056) ng/mL NT-Pro-B Natriuret Pep (5-450) pg/mL Total Protein (6.4-8.2) g/dL Albumin (3.4-5.0) g/dL Globulin (2.3-3.5) g/dL Albumin/Globulin Ratio (1.2-2.2) Urine Color (YELLOW) Urine Appearance (CLEAR) Urine pH (5.0-8.0) Ur Specific [place] (1.008-1.030) Urine Protein (NEGATIVE) mg/dL Urine Glucose (UA) (NEGATIVE) mg/dL Urine Ketones (NEGATIVE) mg/dL Urine Occult Blood (NEGATIVE) Urine Nitrite (NEGATIVE) Urine Bilirubin (NEGATIVE) Urine Urobilinogen (0.2-1.0) EU/dL Ur Leukocyte Esterase (NEGATIVE) Urine RBC (0-5) Urine WBC (0-5) Ur Epithelial Cells Amorphous Sediment Urine Bacteria Urine Mucus Spenser Results Last 24 Hours: Microbiology 03/26/19 11:55 Urine Culture - Preliminary Urine, Bladder NO GROWTH AFTER 1 DAY Med Orders - Current: Current Medications Acetaminophen (Tylenol) 650 mg PO Q4H PRN PRN Reason: Pain (Mild 1-3)/fever Albuterol (Proventil Neb Soln) 2.5 mg NEB Q4H PRN PRN Reason: Shortness Of Breath/wheezing Divalproex Sodium (Depakote Sprinkle) 125 mg PO BIDAC [facility] Last Admin: 03/26/19 16:29 Dose: 125 mg Donepezil HCl (Aricept) 10 mg PO DAILY [facility] Enoxaparin Sodium (Lovenox) 40 mg SUBCUT DAILY [facility] Furosemide (Lasix) 20 mg IVPUSH ONETIME ONE Stop: 03/27/19 09:21 Diltiazem HCl 125 mg/ Sodium (Chloride) 125 mls @ 5 mls/hr IV TITRATE [facility]; Protocol Last Titration: 03/27/19 03:05 Dose: 5 mg/hr, 5 mls/hr Sodium Chloride (Normal Saline) 1,000 mls @ 25 mls/hr IV ASDIRECTED [facility] Last Admin: 03/26/19 14:35 Dose: 25 mls/hr Magnesium Hydroxide (Milk Of Magnesia) 30 ml PO Q12H PRN PRN Reason: Constipation Melatonin (Melatonin) 9 mg PO BEDTIME [facility] Last Admin: 03/26/19 20:24 Dose: 9 mg Ondansetron HCl (Zofran Odt) 4 mg PO Q6H PRN PRN Reason: Nausea able to take PO Ondansetron HCl (Zofran) 4 mg IV Q6H PRN PRN Reason: Nausea/Vomiting Paroxetine HCl (Paxil) 40 mg PO DAILY [facility] Potassium Chloride (Klor-Con M20) 20 meq PO DAILY [facility] Quetiapine Fumarate (Seroquel) 75 mg PO DAILY [facility] Senna/Docusate Sodium (Senna Plus) 1 tab PO BID PRN PRN Reason: Constipation Discontinued Medications Aspirin (Aspirin) 324 mg PO ONETIME ONE Stop: 03/26/19 10:29 Last Admin: 03/26/19 10:39 Dose: 324 mg Diltiazem HCl (Diltiazem) 10 mg IVPUSH ONETIME ONE Stop: 03/26/19 10:32 Last Admin: 03/26/19 10:35 Dose: Not Given Sodium Chloride (Normal Saline) 1,000 mls @ 999 mls/hr IV ASDIRECTED [facility] Last Admin: 03/26/19 11:59 Dose: 999 mls/hr Sodium Chloride (Normal Saline) 1,000 mls @ 999 mls/hr IV ASDIRECTED ZACHERY - Exam Quality Assessment: Supplemental Oxygen General: Alert, Cooperative, No Acute Distress. No: Oriented Neck: JVD Lungs: Normal Respiratory Effort, Crackles (few both bases) Cardiovascular: Regular Rate, Regular Rhythm, No Murmurs GI/Abdominal Exam: Soft, No Distention Extremities: Pedal Edema. No: Increased Warmth Skin: Warm, Dry Psy/Mental Status: Alert, Normal Affect - Problem List & Annotations (1) Atrial flutter with rapid ventricular response SNOMED Code(s): 4822532, 5322674 Code(s): I48.92 - UNSPECIFIED ATRIAL FLUTTER Status: Acute Current Visit : Yes (2) Alzheimer's dementia without behavioral disturbance SNOMED Code(s): 14962128 Code(s): G30.9 - ALZHEIMER'S DISEASE, UNSPECIFIED; F02.80 - DEMENTIA IN OTH DISEASES CLASSD ELSWHR W/O BEHAVRL DISTURB Status: Chronic Current Visit: Yes Qualifiers: Alzheimer's disease onset: late-onset Qualified Code(s): G30.1 - Alzheimer' s disease with late onset; F02.80 - Dementia in other diseases classified elsewhere without behavioral disturbance (3) Essential hypertension SNOMED Code(s): 31696393 Code(s): I10 - ESSENTIAL (PRIMARY) HYPERTENSION Status: Chronic Current Visit: Yes (4) Encounter for palliative care SNOMED Code(s): 650034498 Code(s): Z51.5 - ENCOUNTER FOR PALLIATIVE CARE Status: Acute Current Visit: Yes - Problem List Review Problem List Initiated/Reviewed/Updated: Yes - My Orders Last 24 Hours: My Active Orders 03/26/19 12:52 Resuscitation Status Routine 03/26/19 13:57 Patient Status [ADT] Routine Antiembolic Devices [RC] .Routine Cardiac Monitoring [RC] CONTINUOUS Intake and Output [RC] QSHIFT Notify Provider Vital Signs [RC] ASDIRECTED Oxygen Therapy [RC] PRN RT Aerosol Therapy [RC] ASDIRECTED Up With Assistance [RC] ASDIRECTED VTE/DVT Education [RC] Per Unit Routine Vital Signs [RC] Q2HR Acetaminophen [Tylenol] 650 mg PO Q4H PRN Albuterol [Proventil Neb Soln] 2.5 mg NEB Q4H PRN Docusate Sodium/Sennosides [Senna Plus] 1 tab PO BID PRN Magnesium Hydroxide [Milk of Magnesia] 30 ml PO Q12H PRN Ondansetron [Zofran ODT] 4 mg PO Q6H PRN Ondansetron [Zofran] 4 mg IV Q6H PRN Sodium Chloride 0.9% [Normal Saline] 1,000 ml IV ASDIRECTED Antiembolic Hose [OM.PC] Routine 03/26/19 14:45 Diltiazem 125 mg Sodium Chloride 0.9% [Normal Saline] 100 ml IV TITRATE 03/26/19 16:30 Divalproex Sodium [Depakote Sprinkle] 125 mg PO BIDAC 03/26/19 21:00 Melatonin 9 mg PO BEDTIME 03/26/19 Dinner Regular Diet [DIET] 03/27/19 07:00 PT Evaluation and Treatment [CONS] Routine Echo Comp wo Cont [US] Routine 03/27/19 09:00 Donepezil [Aricept] 10 mg PO DAILY Enoxaparin [Lovenox] 40 mg SUBCUT DAILY PARoxetine [Paxil] 40 mg PO DAILY Potassium Chloride [Klor-Con M20] 20 meq PO DAILY QUEtiapine [SEROquel] 75 mg PO DAILY 03/27/19 09:20 Furosemide [Lasix] 20 mg IVPUSH ONETIME ONE - Plan Plan:: ASSESSMENT AND PLAN - Atrial flutter with rapid ventricular response - no history of heart disease but she does have hypertension. No obvious source of infection. Troponin level has remained normal. Echocardiogram looked good from a structural standpoint but she did have a large pericardial effusion but no evidence for tamponade. She is in sinus rhythm this morning. She is requiring oxygen and may have a mild congestive heart failure-type picture because of the tachycardia yesterday. -Discontinue diltiazem -Cardiac monitoring -One-time dose of furosemide and reassess Syncope - Probably a combination of her tachycardic rhythm and hypovolemia. She has done well since hospital admission. 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 -Continue home medications -Melatonin at bedtime Essential hypertension - Blood pressure on the low side as discussed above. -Hold home medications Stage III chronic kidney disease Encounter for palliative care - family does not desire transfer to tertiary care center for aggressive intervention or workup if her condition declines. They desire limited cares and requests that no CPR or mechanical ventilation be performed. Maintenance issues - - DVT prophylaxis - enoxaparin - GI prophylaxis - not indicated - Nutrition - regular - Delgado catheter - placed in the emergency room, plan to remove this afternoon Disposition - I would anticipate discharge back to her assisted living after the hospital stay Will Gomez M.D.
[2019-03-27] MEDS: PARoxetine 20 MG Tab PO SCH (09:48)
[2019-03-27] MEDS: Potassium Chloride 20 MEQ Tab.ER PO SCH (09:48)
[2019-03-27] MEDS: Donepezil 10 MG Tab PO SCH (09:49)
[2019-03-27] MEDS: Divalproex Sodium Delayed-Release 125 MG Cap.Sprink PO SCH ×2 (09:49→17:09)
[2019-03-27] MEDS: Enoxaparin 40 MG/0.4 ML Syringe SUBCUT SCH (09:49)
[2019-03-27] MEDS: QUEtiapine 25 MG Tab PO SCH (09:50)
[2019-03-27] MEDS: Melatonin 3 MG Tab PO SCH (20:45)
[2019-03-28] MEDS: Sodium Chloride 0.9% 1,000 ML IV SCH (05:37)
[2019-03-28] MEDS: Donepezil 10 MG Tab PO SCH (08:28)
[2019-03-28] MEDS: Potassium Chloride 20 MEQ Tab.ER PO SCH (08:28)
[2019-03-28] MEDS: Divalproex Sodium Delayed-Release 125 MG Cap.Sprink PO SCH ×2 (08:28→16:21)
[2019-03-28] MEDS: PARoxetine 20 MG Tab PO SCH (08:29)
[2019-03-28] MEDS: Enoxaparin 40 MG/0.4 ML Syringe SUBCUT SCH (08:29)
[2019-03-28] MEDS: QUEtiapine 25 MG Tab PO SCH (08:30)
--- NOTE | 2019-03-28 09:42 | PCM.PN ---
- General Info Date of Service: 03/28/19 Subjective Update: There were no acute events overnight. Patient does remain pleasantly confused and is not able to provide a reliable history. She does continue to use supplemental oxygen. She did work with physical therapy this morning. During the exercise we noticed that her heart rate increased into the 100-110 range. She has not reported any chest pain. She has remained in sinus rhythm. Urine culture is negative at 2 days. Functional Status: Reports: Pain Controlled, Tolerating Diet - Review of Systems General: Denies: Fever - Patient Data Vitals - Most Recent: Last Vital Signs Temp 37.3 C 03/28/19 08:00 Pulse 94 03/28/19 08:00 Resp 24 H 03/28/19 08:00 BP 171/71 H 03/28/19 08:28 Pulse Ox 94 L 03/28/19 08:00 Weight - Most Recent: 78.154 kg I&O - Last 24 Hours: Intake & Output 03/27/19 03/28/19 03/28/19 22:59 06:59 14:59 Intake Total 800 636 Output Total 1000 400 Balance -200 236 Spenser Results Last 24 Hours: Microbiology 03/26/19 11:55 Urine Culture - Final Urine, Bladder NO GROWTH AFTER 2 DAYS 03/26/19 12:05 Aerobic Blood Culture - Preliminary Blood - Arm, Left NO GROWTH AFTER 1 DAY Anaerobic Blood Culture - Preliminary NO GROWTH AFTER 1 DAY 03/26/19 11:55 Aerobic Blood Culture - Preliminary Blood - Venous NO GROWTH AFTER 1 DAY Anaerobic Blood Culture - Preliminary NO GROWTH AFTER 1 DAY Med Orders - Current: Current Medications Acetaminophen (Tylenol) 650 mg PO Q4H PRN PRN Reason: Pain (Mild 1-3)/fever Albuterol (Proventil Neb Soln) 2.5 mg NEB Q4H PRN PRN Reason: Shortness Of Breath/wheezing Benazepril HCl (Lotensin) 20 mg PO DAILY [facility] Last Admin: 03/28/19 08:28 Dose: 20 mg Divalproex Sodium (Depakote Sprinkle) 125 mg PO BIDAC [facility] Last Admin: 03/28/19 08:28 Dose: 125 mg Donepezil HCl (Aricept) 10 mg PO DAILY [facility] Last Admin: 03/28/19 08:28 Dose: 10 mg Enoxaparin Sodium (Lovenox) 40 mg SUBCUT DAILY [facility] Last Admin: 03/28/19 08:29 Dose: 40 mg Magnesium Hydroxide (Milk Of Magnesia) 30 ml PO Q12H PRN PRN Reason: Constipation Melatonin (Melatonin) 9 mg PO BEDTIME [facility] Last Admin: 03/27/19 20:45 Dose: 9 mg Metoprolol Tartrate (Lopressor) 25 mg PO Q12H [facility] Ondansetron HCl (Zofran Odt) 4 mg PO Q6H PRN PRN Reason: Nausea able to take PO Ondansetron HCl (Zofran) 4 mg IV Q6H PRN PRN Reason: Nausea/Vomiting Paroxetine HCl (Paxil) 40 mg PO DAILY [facility] Last Admin: 03/28/19 08:29 Dose: 40 mg Potassium Chloride (Klor-Con M20) 20 meq PO DAILY [facility] Last Admin: 03/28/19 08:28 Dose: 20 meq Quetiapine Fumarate (Seroquel) 75 mg PO DAILY [facility] Last Admin: 03/28/19 08:30 Dose: 75 mg Senna/Docusate Sodium (Senna Plus) 1 tab PO BID PRN PRN Reason: Constipation Discontinued Medications Aspirin (Aspirin) 324 mg PO ONETIME ONE Stop: 03/26/19 10:29 Last Admin: 03/26/19 10:39 Dose: 324 mg Diltiazem HCl (Diltiazem) 10 mg IVPUSH ONETIME ONE Stop: 03/26/19 10:32 Last Admin: 03/26/19 10:35 Dose: Not Given Furosemide (Lasix) 20 mg IVPUSH ONETIME ONE Stop: 03/27/19 09:21 Last Admin: 03/27/19 09:50 Dose: 20 mg Sodium Chloride (Normal Saline) 1,000 mls @ 999 mls/hr IV ASDIRECTED [facility] Last Admin: 03/26/19 11:59 Dose: 999 mls/hr Sodium Chloride (Normal Saline) 1,000 mls @ 999 mls/hr IV ASDIRECTED [facility] Diltiazem HCl 125 mg/ Sodium (Chloride) 125 mls @ 5 mls/hr IV TITRATE [facility]; Protocol Last Titration: 03/27/19 03:05 Dose: 5 mg/hr, 5 mls/hr Sodium Chloride (Normal Saline) 1,000 mls @ 25 mls/hr IV ASDIRECTED [facility] Last Admin: 03/28/19 05:37 Dose: 25 mls/hr - Exam Quality Assessment: Supplemental Oxygen General: Alert, Cooperative, No Acute Distress. No: Oriented Lungs: Normal Respiratory Effort, Crackles (both bases) Cardiovascular: Regular Rhythm, Tachycardia GI/Abdominal Exam: Soft, No Distention Extremities: No Pedal Edema. No: Increased Warmth Skin: Warm, Dry Psy/Mental Status: Alert. No: Agitated - Problem List & Annotations (1) Atrial flutter with rapid ventricular response SNOMED Code(s): 2705308, 2329369 Code(s): I48.92 - UNSPECIFIED ATRIAL FLUTTER Status: Acute Current Visit : Yes (2) Alzheimer's dementia without behavioral disturbance SNOMED Code(s): 63790697 Code(s): G30.9 - ALZHEIMER'S DISEASE, UNSPECIFIED; F02.80 - DEMENTIA IN OTH DISEASES CLASSD ELSWHR W/O BEHAVRL DISTURB Status: Chronic Current Visit: Yes Qualifiers: Alzheimer's disease onset: late-onset Qualified Code(s): G30.1 - Alzheimer' s disease with late onset; F02.80 - Dementia in other diseases classified elsewhere without behavioral disturbance (3) Essential hypertension SNOMED Code(s): 28595675 Code(s): I10 - ESSENTIAL (PRIMARY) HYPERTENSION Status: Chronic Current Visit: Yes (4) Encounter for palliative care SNOMED Code(s): 828696593 Code(s): Z51.5 - ENCOUNTER FOR PALLIATIVE CARE Status: Acute Current Visit: Yes - Problem List Review Problem List Initiated/Reviewed/Updated: Yes - My Orders Last 24 Hours: My Active Orders 03/27/19 09:00 Donepezil [Aricept] 10 mg PO DAILY Enoxaparin [Lovenox] 40 mg SUBCUT DAILY PARoxetine [Paxil] 40 mg PO DAILY Potassium Chloride [Klor-Con M20] 20 meq PO DAILY QUEtiapine [SEROquel] 75 mg PO DAILY 03/28/19 09:00 Benazepril [Lotensin] 20 mg PO DAILY 03/28/19 09:30 Metoprolol Tartrate [Lopressor] 25 mg PO Q12H 03/28/19 09:40 Transfer Patient (Change bed) [ADT] Routine Furosemide [Lasix] 40 mg IVPUSH ONETIME ONE 03/29/19 05:00 BASIC METABOLIC PANEL,BMP [CHEM] Timed CBC W/O DIFF,HEMOGRAM [HEME] Timed (1) - Plan Plan:: ASSESSMENT AND PLAN - Atrial flutter with rapid ventricular response - no history of heart disease but she does have hypertension. No obvious source of infection. She does have a large pericardial effusion but no evidence for tamponade. She is still in sinus rhythm. Still requiring supplemental oxygen. -Start beta daniel to help reduce chance of recurrence -Cardiac monitoring -40 mg of furosemide and reassess this afternoon Syncope - Probably a combination of her tachycardic rhythm and hypovolemia. No recurrence. 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 -Continue home medications -Melatonin at bedtime Essential hypertension - Blood pressure moderately elevated. -Continue ISI inhibitor -Start beta daniel Stage III chronic kidney disease Encounter for palliative care - family does not desire transfer to tertiary care center for aggressive intervention or workup if her condition declines. They desire limited cares and requests that no CPR or mechanical ventilation be performed. Maintenance issues - - DVT prophylaxis - enoxaparin - GI prophylaxis - not indicated - Nutrition - regular - Delgdao catheter - will removed today Disposition - I would anticipate discharge back to her assisted living after the hospital stay Will Gomez M.D.
[2019-03-28] MEDS: Metoprolol Tartrate 25 MG Tab PO SCH ×2 (09:45→20:42)
[2019-03-28] MEDS ORDERED: Furosemide 40 MG/4 ML VIAL IVPUSH ONE (10:55)
[2019-03-28] MEDS: Melatonin 3 MG Tab PO SCH (20:42)
--- NOTE | 2019-03-29 09:16 | PCM.PN ---
- General Info Date of Service: 03/29/19 Subjective Update: No acute events. Patient not able to provide reliable hx due to dementia. Still on supplemental O2. Moderate diuresis yesterday. No reports of chest or abdominal pain. No fevers. I did discuss additional possible work up including head CT and chest Ct with family today. They do not feel that work up or potential findings would change our course of action and have elected to avoid additional testing at this time. they are agreeable to additional diuresis and are hoping the patient will be able to complete some level of rehabilitation. she has remained in sinus rhythm. Functional Status: Reports: Pain Controlled, Tolerating Diet - Review of Systems General: Reports: Weakness. Denies: Fever Pulmonary: Reports: Shortness of Breath - Patient Data Vitals - Most Recent: Last Vital Signs Temp 36.9 C 03/29/19 04:52 Pulse 70 03/29/19 04:52 Resp 20 03/29/19 04:52 BP 172/79 H 03/29/19 04:52 Pulse Ox 90 L 03/29/19 04:52 Weight - Most Recent: 78.154 kg I&O - Last 24 Hours: Intake & Output 03/28/19 03/29/19 03/29/19 22:59 06:59 14:59 Intake Total 360 50 Output Total 500 350 Balance -140 -300 Lab Results Last 24 Hours: Laboratory Results - last 24 hr 03/29/19 03/29/19 Range/Units 04:10 04:10 WBC 9.7 (4.5-11.0) K/uL RBC 3.95 (3.30-5.50) M/uL Hgb 11.9 L (12.0-15.0) g/dL Hct 39.2 (36.0-48.0) % MCV 99 H (80-98) fL MCH 30 (27-31) pg MCHC 30 L (32-36) % Plt Count 255 (150-400) K/uL Sodium 141 (140-148) mmol/L Potassium 3.6 (3.6-5.2) mmol/L Chloride 103 (100-108) mmol/L Carbon Dioxide 32 (21-32) mmol/L Anion Gap 5.8 (5.0-14.0) mmol/L BUN 25 H (7-18) mg/dL Creatinine 0.7 (0.6-1.0) mg/dL Est Cr Clr Drug Dosing 53.75 mL/min Estimated GFR (MDRD) > 60 (>60) Glucose 114 H (74-106) mg/dL Calcium 8.3 L (8.5-10.1) mg/dL [facility] Results Last 24 Hours: Microbiology 03/26/19 12:05 Aerobic Blood Culture - Preliminary Blood - Arm, Left NO GROWTH AFTER 2 DAYS Anaerobic Blood Culture - Preliminary NO GROWTH AFTER 2 DAYS 03/26/19 11:55 Aerobic Blood Culture - Preliminary Blood - Venous NO GROWTH AFTER 2 DAYS Anaerobic Blood Culture - Preliminary NO GROWTH AFTER 2 DAYS 03/26/19 11:55 Urine Culture - Final Urine, Bladder NO GROWTH AFTER 2 DAYS Med Orders - Current: Current Medications Acetaminophen (Tylenol) 650 mg PO Q4H PRN PRN Reason: Pain (Mild 1-3)/fever Albuterol (Proventil Neb Soln) 2.5 mg NEB Q4H PRN PRN Reason: Shortness Of Breath/wheezing Benazepril HCl (Lotensin) 20 mg PO DAILY [facility] Last Admin: 03/28/19 08:28 Dose: 20 mg Divalproex Sodium (Depakote Sprinkle) 125 mg PO BIDAC [facility] Last Admin: 03/28/19 16:21 Dose: 125 mg Donepezil HCl (Aricept) 10 mg PO DAILY [facility] Last Admin: 03/28/19 08:28 Dose: 10 mg Enoxaparin Sodium (Lovenox) 40 mg SUBCUT DAILY [facility] Last Admin: 03/28/19 08:29 Dose: 40 mg Magnesium Hydroxide (Milk Of Magnesia) 30 ml PO Q12H PRN PRN Reason: Constipation Melatonin (Melatonin) 9 mg PO BEDTIME [facility] Last Admin: 03/28/19 20:42 Dose: 9 mg Metoprolol Tartrate (Lopressor) 25 mg PO Q12H [facility] Last Admin: 03/28/19 20:42 Dose: 25 mg Ondansetron HCl (Zofran Odt) 4 mg PO Q6H PRN PRN Reason: Nausea able to take PO Ondansetron HCl (Zofran) 4 mg IV Q6H PRN PRN Reason: Nausea/Vomiting Paroxetine HCl (Paxil) 40 mg PO DAILY [facility] Last Admin: 03/28/19 08:29 Dose: 40 mg Potassium Chloride (Klor-Con M20) 20 meq PO DAILY [facility] Last Admin: 03/28/19 08:28 Dose: 20 meq Quetiapine Fumarate (Seroquel) 75 mg PO DAILY [facility] Last Admin: 03/28/19 08:30 Dose: 75 mg Senna/Docusate Sodium (Senna Plus) 1 tab PO BID PRN PRN Reason: Constipation Discontinued Medications Aspirin (Aspirin) 324 mg PO ONETIME ONE Stop: 03/26/19 10:29 Last Admin: 03/26/19 10:39 Dose: 324 mg Diltiazem HCl (Diltiazem) 10 mg IVPUSH ONETIME ONE Stop: 03/26/19 10:32 Last Admin: 03/26/19 10:35 Dose: Not Given Furosemide (Lasix) 20 mg IVPUSH ONETIME ONE Stop: 03/27/19 09:21 Last Admin: 03/27/19 09:50 Dose: 20 mg Furosemide (Lasix) 40 mg IVPUSH ONETIME ONE Stop: 03/28/19 10:56 Last Admin: 03/28/19 09:59 Dose: 40 mg Sodium Chloride (Normal Saline) 1,000 mls @ 999 mls/hr IV ASDIRECTED [facility] Last Admin: 03/26/19 11:59 Dose: 999 mls/hr Sodium Chloride (Normal Saline) 1,000 mls @ 999 mls/hr IV ASDIRECTED [facility] Diltiazem HCl 125 mg/ Sodium (Chloride) 125 mls @ 5 mls/hr IV TITRATE [facility]; Protocol Last Titration: 03/27/19 03:05 Dose: 5 mg/hr, 5 mls/hr Sodium Chloride (Normal Saline) 1,000 mls @ 25 mls/hr IV ASDIRECTED [facility] Last Admin: 03/28/19 05:37 Dose: 25 mls/hr - Exam Quality Assessment: Supplemental Oxygen General: Alert, Cooperative, No Acute Distress. No: Oriented Lungs: Normal Respiratory Effort, Decreased Breath Sounds (both bases), Crackles (both bases) Cardiovascular: Regular Rate, Regular Rhythm, No Murmurs GI/Abdominal Exam: Soft, No Distention Extremities: Pedal Edema. No: Increased Warmth Skin: Warm, Dry Psy/Mental Status: Alert. No: Agitated - Problem List & Annotations (1) Atrial flutter with rapid ventricular response SNOMED Code(s): 6148439, 8645545 Code(s): I48.92 - UNSPECIFIED ATRIAL FLUTTER Status: Acute Current Visit : Yes (2) Alzheimer's dementia without behavioral disturbance SNOMED Code(s): 56176440 Code(s): G30.9 - ALZHEIMER'S DISEASE, UNSPECIFIED; F02.80 - DEMENTIA IN OTH DISEASES CLASSD ELSWHR W/O BEHAVRL DISTURB Status: Chronic Current Visit: Yes Qualifiers: Alzheimer's disease onset: late-onset Qualified Code(s): G30.1 - Alzheimer' s disease with late onset; F02.80 - Dementia in other diseases classified elsewhere without behavioral disturbance (3) Essential hypertension SNOMED Code(s): 77107325 Code(s): I10 - ESSENTIAL (PRIMARY) HYPERTENSION Status: Chronic Current Visit: Yes (4) Encounter for palliative care SNOMED Code(s): 130324391 Code(s): Z51.5 - ENCOUNTER FOR PALLIATIVE CARE Status: Acute Current Visit: Yes - Problem List Review Problem List Initiated/Reviewed/Updated: Yes - My Orders Last 24 Hours: My Active Orders 03/28/19 09:00 Benazepril [Lotensin] 20 mg PO DAILY 03/28/19 09:30 Metoprolol Tartrate [Lopressor] 25 mg PO Q12H 03/28/19 09:40 Transfer Patient (Change bed) [ADT] Routine 03/29/19 09:14 Furosemide [Lasix] 40 mg IVPUSH ONETIME ONE 03/29/19 09:15 Discontinue Telemetry Monitoring [Cardiac Monitoring Discontinue] [RC] Click to Edit 03/29/19 12:00 Potassium Chloride [Klor-Con M20] 40 meq PO ONETIME ONE 03/29/19 13:00 DC Delgado Catheter [Urinary Catheter Removal] [RC] Per Unit Routine 03/30/19 05:00 BASIC METABOLIC PANEL,BMP [CHEM] Timed - Plan Plan:: ASSESSMENT AND PLAN - Acute respiratory failure with hypoxia - probably multifactorial. Still some evidence for volume overload and likely contribution from her large pericardial effusion. We did discuss potential for more aggressive workup including CT scan of the chest but family was not interested in aggressive workup because they did not think it would change our treatment plan. -Supplement oxygen -Additional diuresis -family does not desire aggressive workup Atrial flutter with rapid ventricular response - no history of heart disease but she does have hypertension. No obvious source of infection. She does have a large pericardial effusion but no evidence for tamponade. cardiac function otherwise normal on echocardiogram. She is still in sinus rhythm. -continue beta daniel, transition to once daily dosing -Cardiac monitoring Syncope - Probably a combination of her tachycardic rhythm and hypovolemia. No recurrence. 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 she has lost ground recently and we did discuss the possibility of a CT scan of the brain to see if she has had a stroke but family was not interested. -Continue home medications -Melatonin at bedtime Essential hypertension - Blood pressure moderately elevated. -Continue ISI inhibitor -Start beta daniel Stage III chronic kidney disease Encounter for palliative care - family does not desire transfer to tertiary care center for aggressive intervention or workup if her condition declines. They desire limited cares and requests that no CPR or mechanical ventilation be performed. Maintenance issues - - DVT prophylaxis - enoxaparin - GI prophylaxis - not indicated - Nutrition - regular - Delgado catheter - will be removed this afternoon Disposition - I would anticipate discharge to a assisted facility for subacute rehabilitation if possible. Hospice will be considered if she is not making progress. Will Gomez M.D.
[2019-03-29] MEDS ORDERED: Furosemide 40 MG/4 ML VIAL IVPUSH ONE (09:30)
[2019-03-29] MEDS: Enoxaparin 40 MG/0.4 ML Syringe SUBCUT SCH (09:31)
[2019-03-29] MEDS: Divalproex Sodium Delayed-Release 125 MG Cap.Sprink PO SCH ×2 (09:31→16:17)
[2019-03-29] MEDS: Donepezil 10 MG Tab PO SCH (09:32)
[2019-03-29] MEDS: Potassium Chloride 20 MEQ Tab.ER PO SCH (09:33)
[2019-03-29] MEDS: PARoxetine 20 MG Tab PO SCH (09:34)
[2019-03-29] MEDS: Metoprolol Tartrate 25 MG Tab PO SCH ×2 (09:35→21:45)
[2019-03-29] MEDS: QUEtiapine 25 MG Tab PO SCH (09:35)
[2019-03-29] MEDS ORDERED: Potassium Chloride 20 MEQ Tab.ER PO ONE (12:00)
[2019-03-29] MEDS ORDERED: Morphine 2 MG/ML Syringe IVPUSH PRN (20:23)
[2019-03-29] MEDS: Melatonin 3 MG Tab PO SCH (21:45)
[2019-03-30] MEDS: Acetaminophen 325 MG Tab PO PRN ×2 (05:22→20:32)
[2019-03-30] MEDS: Divalproex Sodium Delayed-Release 125 MG Cap.Sprink PO SCH ×2 (08:30→15:49)
[2019-03-30] MEDS: Potassium Chloride 20 MEQ Tab.ER PO SCH (08:31)
[2019-03-30] MEDS: Donepezil 10 MG Tab PO SCH (08:31)
[2019-03-30] MEDS: PARoxetine 20 MG Tab PO SCH (08:34)
[2019-03-30] MEDS: Enoxaparin 40 MG/0.4 ML Syringe SUBCUT SCH (08:34)
[2019-03-30] MEDS: QUEtiapine 25 MG Tab PO SCH (08:35)
[2019-03-30] MEDS: Metoprolol Tartrate 25 MG Tab PO SCH ×2 (08:35→20:32)
--- NOTE | 2019-03-30 10:04 | PCM.PN ---
- General Info Date of Service: 03/30/19 Subjective Update: No acute events overnight. Patient was agitated most of the day. She was not keeping oxygen on or tolerating the cardiac monitoring. Family felt that a transition to comfort cares would be the best plan of care at this point and this was done yesterday afternoon. She does not complain of any pain at this time. She appears very comfortable. Functional Status: Reports: Pain Controlled, Tolerating Diet - Review of Systems Neurological: Reports: Confusion - Patient Data Vitals - Most Recent: Last Vital Signs Temp 36.9 C 03/30/19 05:22 Pulse 107 H 03/30/19 08:35 Resp 20 03/29/19 16:00 BP 137/70 03/30/19 08:35 Pulse Ox 78 L 03/30/19 02:15 Weight - Most Recent: 78.154 kg I&O - Last 24 Hours: Intake & Output 03/29/19 03/30/19 03/30/19 22:59 06:59 14:59 Intake Total 500 Output Total 1000 250 Balance -500 -250 Lab Results Last 24 Hours: Laboratory Results - last 24 hr 03/30/19 Range/Units 04:30 Sodium 142 (140-148) mmol/L Potassium 3.8 (3.6-5.2) mmol/L Chloride 105 (100-108) mmol/L Carbon Dioxide 31 (21-32) mmol/L Anion Gap 5.9 (5.0-14.0) mmol/L BUN 30 H (7-18) mg/dL Creatinine 0.7 (0.6-1.0) mg/dL Est Cr Clr Drug Dosing 53.75 mL/min Estimated GFR (MDRD) > 60 (>60) Glucose 115 H (74-106) mg/dL Calcium 8.6 (8.5-10.1) mg/dL [place] Results Last 24 Hours: Microbiology 03/26/19 12:05 Aerobic Blood Culture - Preliminary Blood - Arm, Left NO GROWTH AFTER 3 DAYS Anaerobic Blood Culture - Preliminary NO GROWTH AFTER 3 DAYS 03/26/19 11:55 Aerobic Blood Culture - Preliminary Blood - Venous NO GROWTH AFTER 3 DAYS Anaerobic Blood Culture - Preliminary NO GROWTH AFTER 3 DAYS Med Orders - Current: Current Medications Acetaminophen (Tylenol) 650 mg PO Q4H PRN PRN Reason: Pain (Mild 1-3)/fever Last Admin: 03/30/19 05:22 Dose: 650 mg Albuterol (Proventil Neb Soln) 2.5 mg NEB Q4H PRN PRN Reason: Shortness Of Breath/wheezing Benazepril HCl (Lotensin) 20 mg PO DAILY [facility] Last Admin: 03/30/19 08:32 Dose: 20 mg Divalproex Sodium (Depakote Sprinkle) 125 mg PO BIDAC [facility] Last Admin: 03/30/19 08:30 Dose: 125 mg Donepezil HCl (Aricept) 10 mg PO DAILY [facility] Last Admin: 03/30/19 08:31 Dose: 10 mg Enoxaparin Sodium (Lovenox) 40 mg SUBCUT DAILY [facility] Last Admin: 03/30/19 08:34 Dose: 40 mg Magnesium Hydroxide (Milk Of Magnesia) 30 ml PO Q12H PRN PRN Reason: Constipation Melatonin (Melatonin) 9 mg PO BEDTIME [facility] Last Admin: 03/29/19 21:45 Dose: Not Given Metoprolol Tartrate (Lopressor) 25 mg PO Q12H [facility] Last Admin: 03/30/19 08:35 Dose: 25 mg Morphine Sulfate (Morphine) 2 mg IVPUSH Q2H PRN PRN Reason: air hunger or pain Ondansetron HCl (Zofran Odt) 4 mg PO Q6H PRN PRN Reason: Nausea able to take PO Ondansetron HCl (Zofran) 4 mg IV Q6H PRN PRN Reason: Nausea/Vomiting Paroxetine HCl (Paxil) 40 mg PO DAILY [facility] Last Admin: 03/30/19 08:34 Dose: 40 mg Potassium Chloride (Klor-Con M20) 20 meq PO DAILY [facility] Last Admin: 03/30/19 08:31 Dose: 20 meq Quetiapine Fumarate (Seroquel) 75 mg PO DAILY [facility] Last Admin: 03/30/19 08:35 Dose: 75 mg Senna/Docusate Sodium (Senna Plus) 1 tab PO BID PRN PRN Reason: Constipation Discontinued Medications Aspirin (Aspirin) 324 mg PO ONETIME ONE Stop: 03/26/19 10:29 Last Admin: 03/26/19 10:39 Dose: 324 mg Diltiazem HCl (Diltiazem) 10 mg IVPUSH ONETIME ONE Stop: 03/26/19 10:32 Last Admin: 03/26/19 10:35 Dose: Not Given Furosemide (Lasix) 20 mg IVPUSH ONETIME ONE Stop: 03/27/19 09:21 Last Admin: 03/27/19 09:50 Dose: 20 mg Furosemide (Lasix) 40 mg IVPUSH ONETIME ONE Stop: 03/28/19 10:56 Last Admin: 03/28/19 09:59 Dose: 40 mg Furosemide (Lasix) 40 mg IVPUSH ONETIME ONE Stop: 03/29/19 09:31 Last Admin: 03/29/19 09:36 Dose: 40 mg Sodium Chloride (Normal Saline) 1,000 mls @ 999 mls/hr IV ASDIRECTED [facility] Last Admin: 03/26/19 11:59 Dose: 999 mls/hr Sodium Chloride (Normal Saline) 1,000 mls @ 999 mls/hr IV ASDIRECTED [facility] Diltiazem HCl 125 mg/ Sodium (Chloride) 125 mls @ 5 mls/hr IV TITRATE [facility]; Protocol Last Titration: 03/27/19 03:05 Dose: 5 mg/hr, 5 mls/hr Sodium Chloride (Normal Saline) 1,000 mls @ 25 mls/hr IV ASDIRECTED [facility] Last Admin: 03/28/19 05:37 Dose: 25 mls/hr Potassium Chloride (Klor-Con M20) 40 meq PO ONETIME ONE Stop: 03/29/19 12:01 Last Admin: 03/29/19 13:37 Dose: 40 meq - Exam Quality Assessment: No: Supplemental Oxygen General: Alert, Cooperative, No Acute Distress. No: Oriented Lungs: Normal Respiratory Effort, Crackles (few at bases) Cardiovascular: Regular Rate, Regular Rhythm GI/Abdominal Exam: Soft, No Distention Extremities: No Pedal Edema Psy/Mental Status: Alert. No: Agitated - Problem List & Annotations (1) Atrial flutter with rapid ventricular response SNOMED Code(s): 7868439, 3978773 Code(s): I48.92 - UNSPECIFIED ATRIAL FLUTTER Status: Acute Current Visit : Yes (2) Alzheimer's dementia without behavioral disturbance SNOMED Code(s): 08182221 Code(s): G30.9 - ALZHEIMER'S DISEASE, UNSPECIFIED; F02.80 - DEMENTIA IN OTH DISEASES CLASSD ELSWHR W/O BEHAVRL DISTURB Status: Chronic Current Visit: Yes Qualifiers: Alzheimer's disease onset: late-onset Qualified Code(s): G30.1 - Alzheimer' s disease with late onset; F02.80 - Dementia in other diseases classified elsewhere without behavioral disturbance (3) Essential hypertension SNOMED Code(s): 15139586 Code(s): I10 - ESSENTIAL (PRIMARY) HYPERTENSION Status: Chronic Current Visit: Yes (4) Encounter for palliative care SNOMED Code(s): 604713866 Code(s): Z51.5 - ENCOUNTER FOR PALLIATIVE CARE Status: Acute Current Visit: Yes (5) Pericardial effusion without cardiac tamponade SNOMED Code(s): 578239379 Code(s): I31.3 - PERICARDIAL EFFUSION (NONINFLAMMATORY) Status: Acute Current Visit: Yes - Problem List Review Problem List Initiated/Reviewed/Updated: Yes - My Orders Last 24 Hours: My Active Orders 03/29/19 09:15 Discontinue Telemetry Monitoring [Cardiac Monitoring Discontinue] [RC] Click to Edit 03/29/19 13:00 DC Delgado Catheter [Urinary Catheter Removal] [RC] Per Unit Routine 03/29/19 20:23 Morphine 2 mg IVPUSH Q2H PRN 03/30/19 10:03 Resuscitation Status Routine - Plan Plan:: ASSESSMENT AND PLAN - Acute respiratory failure with hypoxia - probably multifactorial. We did discuss potential for more aggressive workup including CT scan of the chest but family was not interested in aggressive workup because they did not think it would change our treatment plan. Family has elected to move towards comfort cares. They do not want oxygen supplemented. Oxygenation is actually a little better today without supplemental oxygen. -Comfort cares -No supplemental oxygen -family does not desire aggressive workup Atrial flutter with rapid ventricular response - no history of heart disease but she does have hypertension. No obvious source of infection. She does have a large pericardial effusion but no evidence for tamponade. cardiac function otherwise normal on echocardiogram. She is still in sinus rhythm. -continue beta daniel, transition to once daily dosing -Cardiac monitoring Syncope - Probably a combination of her tachycardic rhythm and hypovolemia. No recurrence. 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 she has lost ground recently and we did discuss the possibility of a CT scan of the brain to see if she has had a stroke but family was not interested. -Continue home medications -Melatonin at bedtime Essential hypertension - Blood pressure moderately elevated. -Continue ISI inhibitor -Continue beta daniel Stage III chronic kidney disease Encounter for palliative care - family does not desire transfer to tertiary care center for aggressive intervention or workup if her condition declines. They desire limited cares and requests that no CPR or mechanical ventilation be performed. She has been transitioned to comfort care only. Maintenance issues - - DVT prophylaxis - no longer indicated with transition to comfort care - GI prophylaxis - not indicated - Nutrition - regular - Delgado catheter - will be removed this afternoon Disposition - I would anticipate discharge back to her assisted-living with hospice versus possibly the [facility] depending on availability tomorrow. Will Gomez M.D.
[2019-03-30] MEDS: Melatonin 3 MG Tab PO SCH (20:32)
[2019-03-31] MEDS: Acetaminophen 325 MG Tab PO PRN (02:50)
[2019-03-31] MEDS: Metoprolol Tartrate 25 MG Tab PO SCH (09:36)
[2019-03-31] MEDS: PARoxetine 20 MG Tab PO SCH (09:39)
[2019-03-31] MEDS: QUEtiapine 25 MG Tab PO SCH (09:39)
[2019-03-31] MEDS: Potassium Chloride 20 MEQ Tab.ER PO SCH (09:40)
[2019-03-31] MEDS: Divalproex Sodium Delayed-Release 125 MG Cap.Sprink PO SCH (09:40)
[2019-03-31] MEDS: Donepezil 10 MG Tab PO SCH (09:40)
--- NOTE | 2019-03-31 12:46 | PCM.DCSUM1 ---
Discharge Summary - Hospital Course Brief History: Ms. Thakur is an 83-year-old woman who was admitted through the emergency department after she experienced a syncopal episode with hypotension at the senior care. - Discharge Data Discharge Date: 03/31/19 Discharge Disposition: DC/Tfer to Hospice - Home 49 Condition: Poor - Referral to Home Health Primary Care Physician: PCP None - Discharge Diagnosis/Problem(s) (1) Hypoxia SNOMED Code(s): 501539998 ICD Code: R09.02 - HYPOXEMIA Status: Acute Current Visit: Yes (2) Hypotension SNOMED Code(s): 83348709 ICD Code: I95.9 - HYPOTENSION, UNSPECIFIED Status: Acute Current Visit: Yes (3) Atrial fibrillation with rapid ventricular response SNOMED Code(s): 441436469994379 ICD Code: I48.91 - UNSPECIFIED ATRIAL FIBRILLATION Status: Acute Current Visit: Yes (4) Alzheimer's dementia without behavioral disturbance SNOMED Code(s): 43012827 ICD Code: G30.9 - ALZHEIMER'S DISEASE, UNSPECIFIED; F02.80 - DEMENTIA IN OTH DISEASES CLASSD ELSWHR W/O BEHAVRL DISTURB Status: Chronic Current Visit: Yes Qualifiers: Alzheimer's disease onset: late-onset Qualified Code(s): G30.1 - Alzheimer' s disease with late onset; F02.80 - Dementia in other diseases classified elsewhere without behavioral disturbance (5) Encounter for palliative care SNOMED Code(s): 350489817 ICD Code: Z51.5 - ENCOUNTER FOR PALLIATIVE CARE Status: Acute Current Visit: Yes (6) Pericardial effusion without cardiac tamponade SNOMED Code(s): 585757308 ICD Code: I31.3 - PERICARDIAL EFFUSION (NONINFLAMMATORY) Status: Acute Current Visit: Yes - Patient Summary/Data Consults: Consultations 03/27/19 07:00 PT Evaluation and Treatment [CONS] Routine Please Evaluate and Treat. PT Reason for Consult: Strengthening This query below is only for informational purposes and is not editable. Hospital Course: Ms. Thakur present from assisted living after an episode of syncope. She was unable to provide reliable history because of her dementia. History was gathered from her daughter and son-in-law. They report that she seemed a little shaky and a little weak yesterday but was otherwise normal. This morning while her daughter and son-in-law were at her apartment checking on her after she fell asleep at breakfast she had a syncopal episode while on the toilet. She was unresponsive for a short while and her son could not palpate a pulse but she did not have CPR. She was brought to the emergency room for further evaluation and was noted to be in atrial fibrillation/flutter with a heart rate in the 150s. She was hypotensive with systolic blood pressures in the 70s. There was concern for sepsis and she was given IV fluids and cultures were obtained in addition to routine laboratory studies. Her heart rate has slowed some with IV fluids and she is in atrial flutter with a persistent elevation of the heart rate. There is no evidence for an infectious source at this time though her lactic acid level is mildly elevated. Blood pressure is improving with IV fluids. Patient says that she feels fine. She does not recall recent difficulties with chest pain, shortness of breath, cough, fevers or abdominal pain. She has not noticed a change in bowel or bladder habits. On admission she was placed on the IV diltiazem for rate control, which worked well. There was no evidence of underlying infection while monitored in the hospital, blood cultures and urine cultures showed no growth. She was also given IV fluids for hydration and management of dehydration. She was transitioned to oral metoprolol , with ongoing good control of her heart rate. Findings and situation were reviewed with her family and they felt strongly that she would not want further aggressive intervention or evaluation. Status was changed to comfort cares only and she will be discharged back to assisted living facility with hospice admission after discharge. Activity will be as tolerated and she will be placed on a heart healthy diet. - Patient Instructions Diet: Heart Healthy Diet Activity: As Tolerated Other/Special Instructions: Comfort cares only, admit to hospice after discharge from hospital. - Discharge Plan *PRESCRIPTION DRUG MONITORING PROGRAM REVIEWED*: Not Applicable *COPY OF PRESCRIPTION DRUG MONITORING REPORT IN PATIENT LUIS: Not Applicable Prescriptions/Med Rec: Metoprolol Tartrate [Lopressor] 25 mg PO Q12H #60 tablet Home Medications: Home Meds Benazepril [Lotensin] 20 mg PO DAILY 03/26/19 [History] Divalproex Sodium 125 mg PO BIDAC 03/26/19 [History] PARoxetine HCl [Paroxetine HCl] 40 mg PO DAILY 03/26/19 [History] QUEtiapine Fumarate [Quetiapine Fumarate] 75 mg PO DAILY 03/26/19 [History] Metoprolol Tartrate [Lopressor] 25 mg PO Q12H #60 tablet 03/31/19 [Rx] Referrals: PCP,None [Primary Care Provider] - - Discharge Summary/Plan Comment DC Time >30 min.: No - Patient Data Vitals - Most Recent: Last Vital Signs Temp 97.7 F 03/31/19 08:19 Pulse 75 03/31/19 09:36 Resp 18 03/31/19 08:19 BP 142/72 H 03/31/19 09:40 Pulse Ox 86 L 03/31/19 08:19 Weight - Most Recent: 172 lb 4.8 oz I&O - Last 24 hours: Intake & Output 03/30/19 03/31/19 03/31/19 22:59 06:59 14:59 Intake Total 240 800 Output Total 200 Balance -200 240 800 DORIS Results - Last 24 hrs: Microbiology 03/26/19 11:55 Aerobic Blood Culture - Final Blood - Venous NO GROWTH AFTER 5 DAYS Anaerobic Blood Culture - Final NO GROWTH AFTER 5 DAYS 03/26/19 12:05 Aerobic Blood Culture - Final Blood - Arm, Left NO GROWTH AFTER 5 DAYS Anaerobic Blood Culture - Final NO GROWTH AFTER 5 DAYS Med Orders - Current: Current Medications Acetaminophen (Tylenol) 650 mg PO Q4H PRN PRN Reason: Pain (Mild 1-3)/fever Last Admin: 03/31/19 02:50 Dose: 650 mg Albuterol (Proventil Neb Soln) 2.5 mg NEB Q4H PRN PRN Reason: Shortness Of Breath/wheezing Benazepril HCl (Lotensin) 20 mg PO DAILY [facility] Last Admin: 03/31/19 09:40 Dose: 20 mg Divalproex Sodium (Depakote Sprinkle) 125 mg PO BIDAC [facility] Last Admin: 03/31/19 09:40 Dose: 125 mg Donepezil HCl (Aricept) 10 mg PO DAILY [facility] Last Admin: 03/31/19 09:40 Dose: 10 mg Magnesium Hydroxide (Milk Of Magnesia) 30 ml PO Q12H PRN PRN Reason: Constipation Melatonin (Melatonin) 9 mg PO BEDTIME [facility] Last Admin: 03/30/19 20:32 Dose: 9 mg Metoprolol Tartrate (Lopressor) 25 mg PO Q12H [facility] Last Admin: 03/31/19 09:36 Dose: 25 mg Ondansetron HCl (Zofran Odt) 4 mg PO Q6H PRN PRN Reason: Nausea able to take PO Ondansetron HCl (Zofran) 4 mg IV Q6H PRN PRN Reason: Nausea/Vomiting Paroxetine HCl (Paxil) 40 mg PO DAILY [facility] Last Admin: 03/31/19 09:39 Dose: 40 mg Potassium Chloride (Klor-Con M20) 20 meq PO DAILY [facility] Last Admin: 03/31/19 09:40 Dose: 20 meq Quetiapine Fumarate (Seroquel) 75 mg PO DAILY [facility] Last Admin: 03/31/19 09:39 Dose: 75 mg Senna/Docusate Sodium (Senna Plus) 1 tab PO BID PRN PRN Reason: Constipation Discontinued Medications Aspirin (Aspirin) 324 mg PO ONETIME ONE Stop: 03/26/19 10:29 Last Admin: 03/26/19 10:39 Dose: 324 mg Diltiazem HCl (Diltiazem) 10 mg IVPUSH ONETIME ONE Stop: 03/26/19 10:32 Last Admin: 03/26/19 10:35 Dose: Not Given Enoxaparin Sodium (Lovenox) 40 mg SUBCUT DAILY [facility] Last Admin: 03/30/19 08:34 Dose: 40 mg Furosemide (Lasix) 20 mg IVPUSH ONETIME ONE Stop: 03/27/19 09:21 Last Admin: 03/27/19 09:50 Dose: 20 mg Furosemide (Lasix) 40 mg IVPUSH ONETIME ONE Stop: 03/28/19 10:56 Last Admin: 03/28/19 09:59 Dose: 40 mg Furosemide (Lasix) 40 mg IVPUSH ONETIME ONE Stop: 03/29/19 09:31 Last Admin: 03/29/19 09:36 Dose: 40 mg Sodium Chloride (Normal Saline) 1,000 mls @ 999 mls/hr IV ASDIRECTED [facility] Last Admin: 03/26/19 11:59 Dose: 999 mls/hr Sodium Chloride (Normal Saline) 1,000 mls @ 999 mls/hr IV ASDIRECTED [facility] Diltiazem HCl 125 mg/ Sodium (Chloride) 125 mls @ 5 mls/hr IV TITRATE [facility]; Protocol Last Titration: 03/27/19 03:05 Dose: 5 mg/hr, 5 mls/hr Sodium Chloride (Normal Saline) 1,000 mls @ 25 mls/hr IV ASDIRECTED [facility] Last Admin: 03/28/19 05:37 Dose: 25 mls/hr Morphine Sulfate (Morphine) 2 mg IVPUSH Q2H PRN PRN Reason: air hunger or pain Potassium Chloride (Klor-Con M20) 40 meq PO ONETIME ONE Stop: 03/29/19 12:01 Last Admin: 03/29/19 13:37 Dose: 40 meq - Exam Quality Assessment: Reports: DVT Prophylaxis General: Reports: Alert, Cooperative, No Acute Distress. Denies: Oriented Lungs: Reports: Clear to Auscultation, Normal Respiratory Effort Cardiovascular: Reports: Regular Rhythm, No Murmurs, Irregular Rhythm GI/Abdominal Exam: Soft, Non-Tender, No Organomegaly, No Distention Extremities: Non-Tender, No Pedal Edema
== END 2019-03-31 13:17 | disposition hospice, home (50) | DRG 308 ==
LOC: JP.ED 10:15 → JP.ICU 12:51 → JP.MS 03-30 14:45
PROVIDERS: ADMIT Internal Medicine; ATTEND Internal Medicine
DX: I48.92 Unspecified atrial flutter (principal); J96.01 Acute respiratory failure with hypoxia; I31.3 Pericardial effusion (noninflammatory); R55 Syncope and collapse; R06.02 Shortness of breath; F03.90 Unspecified dementia, unspecified severity, without behavioral disturbance, psychotic disturbance, mood disturbance, and anxiety; I95.9 Hypotension, unspecified; I48.91 Unspecified atrial fibrillation; G30.1 Alzheimer's disease with late onset; Z66 Do not resuscitate; F02.80 Dementia in other diseases classified elsewhere, unspecified severity, without behavioral disturbance, psychotic disturbance, mood disturbance, and anxiety; Z51.5 Encounter for palliative care; I12.9 Hypertensive chronic kidney disease with stage 1 through stage 4 chronic kidney disease, or unspecified chronic kidney disease; N18.3 Chronic kidney disease, stage 3 (moderate); E86.0 Dehydration; R45.1 Restlessness and agitation; F41.9 Anxiety disorder, unspecified; M81.0 Age-related osteoporosis without current pathological fracture; E86.1 Hypovolemia; Z88.0 Allergy status to penicillin; Z79.899 Other long term (current) drug therapy
CPT/HCPCS: 36415; 51702; 71045; 80053; 81001; 83605; 83880; 84484; 85025; 87040 ×2; 87086; 93005; 93010; 99285 ×2; A9270; J7030 ×2; 80048; 83735; 85027; 93306; 97110-GP; 97116-GP; 97162-GP; 97530-GP; J1650; J1940; J3490